=== PATIENT | male | born 1940 | race Caucasian/White ===

== ENCOUNTER 2016-07-07 08:34 | Inpatient (IN) | payer MEDICARE, OTHER ==
[2016-06-30 10:20] LABS: BASOPHILS 0.4 %; BASOPHILS ABSOLUTE 0.03 10/3/uL (0.0-0.16); EOSINOPHILS 2.4 %; HEMATOCRIT 47.4 % (40.0-51.0); IMMATURE GRANULOCYTES 0.2 %; IMMATURE GRANULOCYTES ABSOLUTE 0.02 10/3/uL (0.0-0.11); LYMPHOCYTES 20.8 %; LYMPHOCYTES ABSOLUTE 1.75 10/3/uL (0.67-4.30); MEAN CORPUS HGB CONC 33.8 g/dL (32.0-36.0); MEAN CORPUSCULAR HEMOGLOB 30.1 pg (26.0-34.0); MEAN CORPUSCULAR VOLUME 89.3 fL (80-100); MEAN PLATELET VOLUME 10.3 fL (9.2-13.0); MONOCYTES 14.1 %; MONOCYTES ABSOLUTE 1.19 10/3/uL (0.21-1.20); NEUTROPHILS 62.1 %; NEUTROPHILS ABSOLUTE 5.22 10/3/uL (2.02-8.40); PLATELET COUNT 188 10/3/uL (150-400); RBC DISTRIBUTION WIDTH 13.9 % (12.0-16.0); RED CELL COUNT 5.31 10/6/uL (4.7-6.1); WHITE BLOOD CELLS 8.4 10/3/uL (4.5-10.5)
[2016-06-30 10:22] LABS: MANUAL DIFF NO %
[2016-06-30 10:27] LABS: INTERNATIONAL NORMAL RATI 1.1 UNITS (-); PARTIAL THROMBO TIME 28.8 SEC (22.5-37.2); PROTIME (NOT ORD) 13.7 SEC (12.0-14.5)
[2016-06-30 10:32] LABS: BUN (BLOOD UREA NITROGEN) 19 MG/DL (6-23); CALCIUM, SERUM 9.2 MG/DL (8.5-10.4); CHLORIDE, SERUM 101 MMOL/L (96-112); CO2 (CARBON DIOXIDE) 31 MMOL/L (24-34); CREATININE 1.79 MG/DL (0.70-1.30); GFR AFRICAN AMERICAN 41 ML/MIN (>=60); GFR NON AFRICAN AMERICAN 36 ML/MIN (>=60); GLUCOSE, SERUM 97 MG/DL (60-99); POTASSIUM, SERUM 4.5 MMOL/L (3.5-5.3); SODIUM, SERUM 139 MMOL/L (135-148)
[2016-06-30 10:53] LABS: ASCORBIC ACID (UR NOT ORDER) NEG (NEG); BILIRUBIN, URINE NEGATIVE (NEG); KETONE, URINE NEGATIVE (NEG); LEUKOCYTE ESTERASE(NOT OR NEG (NEG); WBC (NOT ORDERED) (RFLEX) 16 (0-5)
--- NOTE | ~2016-07-07 | PREOPHP ---
PreOp History and Physical [facility] [id number] [place]. 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 HISTORY OF PRESENT ILLNESS: Mr. 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 Different treatment options were proposed to the patient. It was decided to proceed with laparoscopic robot-assisted left nephroureterectomy. He will be admitted after that procedure. He is also known to have some TCC of the bladder. PAST MEDICAL HISTORY: Significant for coronary artery disease, myocardial infarction, dyslipidemia, arthritis, hypertension, and gastroesophageal reflux disease. PAST SURGICAL HISTORY: Includes cardiac stenting, cardiac bypass graft, radical prostatectomy, and appendectomy. CURRENT MEDICATIONS: Plavix, which has been on hold; aspirin, which has been on hold; amlodipine; hydralazine; hydrochlorothiazide; lisinopril; lorazepam; lovastatin; metoprolol; omeprazole; and potassium chloride. ALLERGIES: NO KNOWN DRUG ALLERGIES. SOCIAL HISTORY: One to two alcoholic beverages a year. Denies tobacco use since 1972. Denies drug use. FAMILY HISTORY: Noncontributory. REVIEW OF SYSTEMS: Significant for indigestion, heartburn, and hearing loss. PHYSICAL EXAMINATION: GENERAL: A well-developed, well-nourished white male, in no acute distress. He is awake, alert, and oriented x3. HEENT: His sclerae anicteric. NECK: Supple. LUNGS: Clear. HEART: Regular rate and rhythm. ABDOMEN: Soft and nontender. Lower midline incision noted. Flank is nontender. GENITOURINARY: Kidneys are not palpable. Penis normal. Testes descended. LOWER EXTREMITIES: Showed no deformities. 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 PLAN: Laparoscopic robot-assisted left nephroureterectomy. Potential complications of bleeding, infection, renal failure, and need for dialysis as well as perioperative morbidities of myocardial infarction, , and stroke as well as injury to adjacent structures such as spleen, liver, intestines, lung, pleura, and diaphragm, colon, blood vessels, and nerves have all been explained to the patient. He consents to proceed. PreOp History and Physical [address] [place]. [place]. [address] NAME: BILL LOVELL : 39 STATUS : PRE IN PAT#: [id number] AGE: 76 ADM/REG DATE : MR#: [id number] REPORT SERV DATE: 07/07/16 DICTATED BY: CAMERON TOLENTINO DATE: 07/06/16 REPORT STATUS : Draft TRANSCRIBED BY: MODNadia DATE: 07/06/16 PF/MODNadia Cameron Tolentino M.D. / [id number] CC: Emre Colón LISA M
--- NOTE | ~2016-07-07 | DS ---
Discharge Summary [facility] [address] [place]. [address] NAME: BILL LOVELL : 39 STATUS : DIS IN PAT#: [id number] AGE: 76 ADM/REG DATE : 07/07/16 MR#: [id number] REPORT SERV DATE: 07/11/16 DICTATED BY: CAMERON TOLENTINO DATE: 07/10/16 REPORT STATUS : Draft TRANSCRIBED BY: MODL DATE: 07/10/16 ADMISSION DATE: 07/07/2016 DISCHARGE DATE: 07/10/2016 DIAGNOSIS: Transitional carcinoma, left kidney. OTHER DIAGNOSES: Chronic kidney disease, postoperative hypoxemia. PROCEDURES IN THIS HOSPITALIZATION: Laparoscopic robot-assisted left nephroureterectomy. For complete history of present illness, please see dictated H and P. HOSPITAL COURSE: The patient underwent the above-mentioned procedure on the afternoon of 07/07/2016. Postoperatively, he had a Tolentino catheter draining his bladder and a Inder drain in the left flank. On the first postoperative day, he was stable. He was advanced to a liquid diet. He had good pain control. On the second postoperative day, he was somewhat hypoxemic with oxygen saturations on room air around 88%. With oxygen, he would saturate just a bit above 90. It was felt that he was fluid overloaded. His IV fluids were discontinued, and he administered diuretics. He had a nice diuresis and on the third postoperative day, he was comfortably breathing with room air saturations of about 92%. The patient ambulated throughout his entire postoperative period. I restarted him on his aspirin on the second postoperative day and Plavix on the third postoperative day. His serum creatinine on the day of discharge was 2.26 and that was stable during the postoperative period. His potassium remained stable as well at 4.0. He was discharged home on the same medications. He was admitted to the hospital on without any adjustments. He was discharged home with his Tolentino catheter. The nurse is instructed to remove the Tolentino catheter on postop day #8. He will follow up with Dr. Tolentino for pathology review and further discussion in two weeks. He has instructions for no driving for two weeks. He may shower. The patient required no pain medications on discharge. PF/ANDERS Cameron Tolentino M.D. / [id number] CC: Emre Colón LISA M
--- NOTE | ~2016-07-07 | OP ---
Record Of Operation [facility] [address] [place]. [address] NAME: BILL LOVELL : 39 STATUS : ADM IN PAT#: [id number] AGE: 76 ADM/REG DATE : 07/07/16 MR#: [id number] REPORT SERV DATE: 07/07/16 DICTATED BY: CAMERON TOLENTINO DATE: 07/07/16 REPORT STATUS : Draft TRANSCRIBED BY: MODL DATE: 07/07/16 DATE OF PROCEDURE: 07/07/2016 PREOPERATIVE DIAGNOSIS: Transitional cell carcinoma, left renal pelvis. POSTOPERATIVE DIAGNOSIS: Transitional cell carcinoma, left renal pelvis. PROCEDURES: Laparoscopic robot-assisted left nephroureterectomy. SURGEON: Cameron Tolentino M.D. PERSONAL PROTECTION SPECIALIST: Frankie Rivas. ANESTHESIA: General and local. ESTIMATED BLOOD LOSS: 250 mL. FLUID REPLACEMENT: 2.2 L of crystalloid and 500 mL albumin. 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 TECHNIQUE: The patient was identified, brought to the operating room, administered general anesthetic agent by the Anesthesia Service, and intubated. He was positioned into the partial flank position with the upper torso flexed with the right side down and left side up, but the hips remained supine. Table flexed partially as well. The abdomen had previously been clipped. A Tolentino catheter was placed in the bladder and then the entire lower abdomen, penis, groin, scrotum, and perineum were prepped draped in usual sterile fashion. A 3 cm skin incision was made through a previous scar below the umbilicus. It was carried down to the fascia. Holding sutures were placed in the fascia and the fascia was incised sharply. The underlying peritoneum was identified and opened sharply. A balloon trocar was placed into the peritoneal space and pneumoperitoneum was created by insufflating carbon dioxide. The abdominal pressure was raised to 15 mmHg and held there through the entire case until otherwise specified. I then placed four robot arm ports along roughly in a straight line along the mid clavicular line on the left. Once ports were in position, I used the laparoscopic instruments to mobilize the left colon off the retroperitoneum. I incised the avascular line of Toldt from the iliac vessels all way up to the splenic flexure, and carried around medially, and exposed the upper pole of the kidney. I then inferiorly identified the psoas muscle and elevated the tissues, and the kidney off the psoas muscle posteriorly. I identified the left ureter. It was elevated. I then dissected up toward the renal hilum using mostly a Harmonic scalpel. The renal hilum was encountered, cleaned up, and then secured with a laparoscopic DONAL stapling device. I then came through the remainder of the tissue between the adrenal gland in the left kidney. This was done mostly with Harmonic scalpel. I then undocked the da Cortez robot. I continued to take he the lateral portions of the kidney off the retroperitoneum. The kidney was now mobile all the way down to where the ureter has been. Record Of Operation [facility] [address] [place]. [address] NAME: BILL LOVELL HORNE : 39 STATUS : ADM IN PAT#: [id number] AGE: 76 ADM/REG DATE : 07/07/16 MR#: [id number] REPORT SERV DATE: 07/07/16 DICTATED BY: CAMERON TOLENTINO DATE: 07/07/16 REPORT STATUS : Draft TRANSCRIBED BY: MODNadia DATE: 07/07/16 I undocked the da Cortez robot, and removed the most cephalad port, and placed a port inferiorly toward the midline between the symphysis and the umbilicus. I then re-docked the robot one port down. I carried my dissection into the pelvis of the ureter. I freed up the ureter all the way down past the vas deferens into the superior vesicle pedicle. This superior vesicles pedicle was secured and then divided. I carried the dissection down into the intramural ureter. I clipped the ureter twice and then one of them being in the intravesical ureter. I then divided. I then over sewed the clipped distally at the mucosa with 3-0 Monocryl. Fastidious hemostasis was achieved. I undocked the da Cortez robot. The specimen was placed into a specimen retrieval bag and held for later retrieval. The retrieval bag was brought out through the most inferior lateral port. The abdominal pressure was now lowered and I inspected renal hilum which remains dry. I inspected the pelvis, it remains dry. I placed a 15 mm Inder drain through the port just above the most inferior lateral one. The ports were removed and drain was sutured to the skin with 2-0 Prolene. The drain was left in the retroperitoneum. The patient was returned back to the [id number] to a supine position. The colon placed back into its anatomic location. All ports were removed under low pressure. No port site bleeding was noted. I extend to make a skin incision from the most inferior lateral port laterally measuring approximately 10 cm. I then carried down and opened the fascia like distance. I then delivered the specimen out through the wound. I closed the fascia with running #1 PDS and then some interrupted #1 0 Vicryl [id number]. The subcutaneous tissue of all ports was irrigated copiously. The subcutaneous tissue of the delivery port was closed in two layers with 3-0 Vicryl. The skin of all ports were closed with 4-0 Monocryl. The balloon port fascia was closed with [id number] 0 Vicryl sutures. The ports were irrigated and the skin was closed with 4-0 Monocryl. Dressings were applied. The catheter was secured to the patient. He was awakened and taken to the recovery unit in stable and satisfactory condition. PF/MODL Cameron Tolentino M.D. / [id number] CC: Cameron Tolentino M.D.
[~2016-07-07 08:34] MED LIST: *UNABLE3; ADVIL PO; APRES25 PO; ASA5GR PO; ASAB PO; ATV.5 PO; CAT1 PO; CYANO1000T PO; HALF81 PO; HYDROCHLOROT25 MG PO; IBU400 PO; IBU800 PO; IMDUR30 PO; KCL20UDL PO; KDUR10 PO; KLOR-CON M2020 MEQ PO; LISINOPRIL40 MG PO; LOP25 PO; MEVACOR40 MG PO; NORV10 PO; NORV5 PO; PLAVIX PO; PRILO PO; PRILOSEC40 MG PO; PRIN10 PO; PROTONIX PO; RANEXA1000 MG PO; VITAMIN D1000 UNI1 PO
[2016-07-08 07:01] LABS: HEMOGLOBIN 13.6 g/dL (13.6-17.8)
[2016-07-08 07:10] LABS: BUN (BLOOD UREA NITROGEN) 24 MG/DL (6-23); CALCIUM, SERUM 7.9 MG/DL (8.5-10.4); CHLORIDE, SERUM 103 MMOL/L (96-112); CO2 (CARBON DIOXIDE) 24 MMOL/L (24-34); CREATININE 2.26 MG/DL (0.70-1.30); GFR AFRICAN AMERICAN 31 ML/MIN (>=60); GFR NON AFRICAN AMERICAN 27 ML/MIN (>=60); GLUCOSE, SERUM 125 MG/DL (60-99); POTASSIUM, SERUM 4.2 MMOL/L (3.5-5.3); SODIUM, SERUM 138 MMOL/L (135-148)
[2016-07-08 07:18] LABS: HEMATOCRIT 40.4 % (40.0-51.0)
[2016-07-10 07:32] LABS: BASOPHILS 0.2 %; BASOPHILS ABSOLUTE 0.02 10/3/uL (0.0-0.16); EOSINOPHILS 0.6 %; EOSINOPHILS ABSOLUTE 0.07 10/3/uL (0.0-0.53); HEMATOCRIT 38.1 % (40.0-51.0); IMMATURE GRANULOCYTES 0.3 %; IMMATURE GRANULOCYTES ABSOLUTE 0.04 10/3/uL (0.0-0.11); LYMPHOCYTES 11.8 %; LYMPHOCYTES ABSOLUTE 1.41 10/3/uL (0.67-4.30); MEAN CORPUS HGB CONC 34.1 g/dL (32.0-36.0); MEAN CORPUSCULAR HEMOGLOB 31.1 pg (26.0-34.0); MEAN CORPUSCULAR VOLUME 91.1 fL (80-100); MEAN PLATELET VOLUME 10.6 fL (9.2-13.0); MONOCYTES 14.7 %; MONOCYTES ABSOLUTE 1.75 10/3/uL (0.21-1.20); NEUTROPHILS 72.4 %; NEUTROPHILS ABSOLUTE 8.62 10/3/uL (2.02-8.40); PLATELET COUNT 166 10/3/uL (150-400); RBC DISTRIBUTION WIDTH 13.7 % (12.0-16.0)
[2016-07-10 07:34] LABS: MANUAL DIFF NO %; RED CELL COUNT 4.18 10/6/uL (4.7-6.1); WHITE BLOOD CELLS 11.9 10/3/uL (4.5-10.5)
[2016-07-10 07:45] LABS: BUN (BLOOD UREA NITROGEN) 24 MG/DL (6-23); CALCIUM, SERUM 8.2 MG/DL (8.5-10.4); CHLORIDE, SERUM 99 MMOL/L (96-112); CO2 (CARBON DIOXIDE) 29 MMOL/L (24-34); CREATININE 2.22 MG/DL (0.70-1.30); GFR AFRICAN AMERICAN 32 ML/MIN (>=60); GFR NON AFRICAN AMERICAN 28 ML/MIN (>=60); GLUCOSE, SERUM 94 MG/DL (60-99); SODIUM, SERUM 136 MMOL/L (135-148)
== END 2016-07-10 15:11 | disposition home or self-care (01) | DRG 658 ==
LOC: SDC/OF 08:34 → PACU 18:25 → 4SO 21:37
PROVIDERS: Urology
PROC: 0TT14ZZ Resection of Left Kidney, Percutaneous Endoscopic Approach (ICD-10-PCS; principal; 2016-07-07 12:30)
PROC: 0TT74ZZ Resection of Left Ureter, Percutaneous Endoscopic Approach (ICD-10-PCS; principal; 2016-07-07 12:30)
DX: C65.2 Malignant neoplasm of left renal pelvis (principal); I95.89 Other hypotension; I25.10 Atherosclerotic heart disease of native coronary artery without angina pectoris; I25.2 Old myocardial infarction; K21.9 Gastro-esophageal reflux disease without esophagitis; E78.5 Hyperlipidemia, unspecified; M19.90 Unspecified osteoarthritis, unspecified site; Z95.5 Presence of coronary angioplasty implant and graft; Z95.1 Presence of aortocoronary bypass graft; Z79.02 Long term (current) use of antithrombotics/antiplatelets; Z79.82 Long term (current) use of aspirin; Z87.891 Personal history of nicotine dependence; I12.9 Hypertensive chronic kidney disease with stage 1 through stage 4 chronic kidney disease, or unspecified chronic kidney disease; N18.9 Chronic kidney disease, unspecified; R09.02 Hypoxemia; F41.9 Anxiety disorder, unspecified; E87.79 Other fluid overload
CPT/HCPCS: 36415; 80048; 81001; 82570; 83735; 85014; 85018; 85025; 85610; 85730; 86850; 86900; 86901; 88307; 93005; A9270-GY; J0461; J0690; J1940; J2250; J2370; J2405; J2710; J2795; J3010; P9045